=== PATIENT | male | born 1965 | race Caucasian/White ===

== ENCOUNTER → 2016-05-18 10:02 | Day surgery (SDC) | payer MEDICARE, MEDICAID ==
--- NOTE | 2016-05-18 03:42 | HP ---
HISTORY AND PHYSICAL: DATE OF ADMISSION: 05/18/16 HISTORY OF PRESENT ILLNESS: Rubens follows up for his left shoulder. He had a fall after his debridement and he is here for the results. He is still having a significant amount of pain. He is unable to lift the shoulder up. He is worried that he caused harm. It feels stiffer than it did prior to surgery, the surgery was done on January 05. PAST MEDICAL HISTORY: Recent ulcers, anemia, rashes, learning disability, DVT in his leg 1-1/2 years ago. PAST SURGICAL HISTORY: Significant for right knee arthroscopy, tonsillectomy and left shoulder arthroscopy with debridement and biceps tenotomy. MEDICATIONS: Include: 1. Warren. 2. Loratadine. 3. Omeprazole. 4. Ferrous sulfate. ALLERGIES: None. FAMILY HISTORY: Mother with diabetes and high blood pressure. Father with cancer who is at end of life. SOCIAL HISTORY: He denies smoking tobacco, but he chews up to 2 cans a day. He denies alcohol. He is disabled due to his learning disability. REVIEW OF SYSTEMS: A 14-point review of systems is reviewed with the patient, is significant for an ulcer that was last fall with anemia, history of DVT, rashes, as well as the above complaint and recent surgery in the left shoulder in December 2015. Otherwise, remainder of the review of systems is negative. PHYSICAL EXAMINATION GENERAL: He is in no acute distress. He is well developed, well nourished. He is alert and oriented x3. He has pleasant mood and normal affect. HEENT: EOMI. LUNGS: Chest is clear to auscultation bilaterally. HEART: Regular rate and rhythm. ABDOMEN: Soft. EXTREMITIES: Examination of the left shoulder demonstrates his skin is intact. Incisions are well healed. He can forward flex to about 80, abduct to about 70 , passively I can get him further but it causes a lot of pain, externally rotates to about 30 degrees, internal rotation to posterior ileum. He has 4/5 strength with supraspinatus testing, 5/5 strength with subscap including belly press and bear hug; however, it is painful. He has a popeyes deformity. He has full range of motion to his elbow, wrist and hand. He is sensate to light touch about the first dorsal webspace, index and long finger and ulnar aspect of the small finger. He has 2+ radial pulse. DIAGNOSTIC STUDIES: MRI was reviewed that demonstrates a full thickness tear of his supraspinatus tendon. ASSESSMENT AND PLAN: He fell, subsequent to that he has torn his rotator cuff. I talked to him about options. I am concerned because he does use smokeless tobacco, I think the nicotine is going to cause him a problem with regards to his healing, but he is not diabetic. I told him I want him to wean off or quit entirely because it can affect his repair. At this point, I would plan for a left shoulder arthroscopy with rotator cuff repair and debridement as indicated. We reviewed the risks and benefits of surgery, which include but are not limited to bleeding, infection, damage to nerve vessels, surrounding structures, wound nonhealing, stiffness persistent pain, need for further surgery, retear or failure of the repair, fracture, risk of DVT and risk of anesthesia. He has elected to proceed with surgery. We will see him back 10 to 14 days after surgery. I wrote him a prescription for Warren that will help alleviate his pain until surgery. [id number]/[facility] #: [id number] [facility]
[~2016-05-18 10:02] MED LIST: Buffered Lidocaine 1% SYRIN* 3 ML/SYR SYRINGE INTRADERM ONE; Dexamethasone IV* 4 MG/ML 1 ML (4 MG) ONE; DiMENhydriNATE IV* 50 MG/ML VIAL IV PUSH PRN; Famotidine IV* 10 MG/ML 2 ML (20 mg) IV ONE; Famotidine IV* 10 MG/ML 2 ML (20 mg) ONE; HYDROmorphone* 1 MG/ML 1 ML SYR IV PRN; Ketorolac INJ* 30 MG/ML 1 ML VIAL ONE; Lidocaine 2% PF* 5 ML VIAL ONE; Midazolam* 1 MG/ML 5 ML VIAL (5 MG) ONE; Ondansetron INJ* 2 MG/ML VIAL ONE; Propofol* 10 MG/ML 20 ML BTL IV PUSH ONE; Succinylcholine* 20 MG/ML 10 ML VIAL ONE; ceFAZolin 2 GM PREMIX(*) 2 GM/50 ML BAG IVPB ONE; fentaNYL* 50 MCG/ML 2 ML VIAL (100 MCG VIAL) ONE; oxyCODONE/Acetamin 5/325 MG* TAB PO PRN
[2016-05-18 16:53] VITALS: BP 142/96
--- NOTE | 2016-05-23 02:58 | OP ---
DATE OF OPERATION: 05/18/16 [facility] DATE OF : 69 SURGEON: Sanjuanita Rhodes MD COATING MACHINE OPERATOR HELPER: DAX Ba. An welder assistant was needed for the entirety of the case to help with positioning, retraction, and was utilized throughout all portions of the case. ANESTHESIOLOGIST: Dr. Ngo. ANESTHESIA: General with interscalene block. PRE-OP DIAGNOSIS: Left shoulder supraspinatus tear. POST-OP DIAGNOSIS: Left shoulder supraspinatus tear. OPERATIVE PROCEDURE: Left shoulder arthroscopy with rotator cuff repair revision and decompression. IMPLANTS USED: Two HEALICOIL and one MULTIFIX anchor. INDICATIONS: Rubens Boswell is a 50-year-old male, who underwent a previous subacromial decompression with acromioplasty for adhesive capsulitis and acute impingement. He also underwent biceps tenotomy at that time. He was doing well and he lost ground. He fell several weeks into the postoperative period and had persistent pain and difficulty raising his shoulder up. It felt different than it did prior to surgery. We obtained an MRI, which demonstrated a full thickness tear of the supraspinatus tendon, which was not present in the previous surgical window. Risks and benefits of surgery were discussed at length and included, but not limited to, bleeding, infection, damage to nerves, vessels, surrounding structures, wound nonhealing, persistent pain, need for further surgery, risks of anesthesia, risk of DVT, and risk of failure. The patient does chew tobacco and was warned that this will affect his postoperative recovery time. It was discussed at length that he should quit the tobacco. He has elected to proceed with surgery. DESCRIPTION OF PROCEDURE: The patient was greeted in the preoperative area by the attending surgeon, correct extremity was marked and the consent was confirmed. The patient then underwent interscalene nerve block by the attending anesthesiologist, which he tolerated without difficulty. The patient was then brought back to the operating suite where he was placed in the supine position on the operating table. He then underwent general anesthesia with LMA intubation, which he tolerated well. The patient was then placed in the right lower decubitus position with an axillary roll. All bony prominences were padded. He was supported with a peg board. The left arm was then draped unsterile from the traction frame with 10 pounds of traction. The left arm was then prepped and draped in the usual sterile fashion. Next, after appropriate surgical pause indicating side, site, procedure, and administration of antibiotics, the standard posterior lateral portal was made sharply with an 11 blade. The scope was introduced to the joint. The joint was examined. The joint itself had no specific changes. There was hyperemia and increased synovitis on the undersurface of the rotator cuff, but there was nothing else that visualized any changes. The scope was then repositioned in the subacromial space. There was evidence of a full thickness tear of supraspinatus particularly anteriorly based and then high-grade partial thickness tear which connected to this that was extended almost to the level of the infraspinatus tendon. Lateral portal was made in outside-in fashion. The recurrent bursa was then removed using the shaver device. The undersurface of the acromion was prepared. Again, a small revision acromioplasty which was mostly done with the shaver. Once the excess bursal tissue and inflammatory tissues were removed, the cuff was visualized. It was fully torn anteriorly. The electrocautery device was then used to help complete the tear to completely detach this. The edges were then debrided back using the shaver. The greater tuberosity was prepared in the usual fashion with electrocautery device, the shaver as well as the rasp. Once this was done, two 4.75 HEALICOIL anchors were made with separate stab incisions into the medial aspect of the greater tuberosity. These were placed with excellent purchase. The sutures were then passed in horizontal mattress configuration. These were then tagged down which helped to appropriately restore the tendon. One suture from each knot was then cut and the remaining sutures then passed through one MULTIFIX anchor for a lateral row repair. This allowed stable strong construct. The shoulder was taken through range of motion and found to be stable. All excess fluid and debris were removed. Final images were obtained. All fluid was removed from the joint. The wound was closed with 3-0 nylon. The sterile dressings were applied as well as a Cryo/Cuff. The patient was then placed in an UltraSling. He was awoken from anesthesia and transferred to PACU in stable condition. POSTOPERATIVE PLAN: He will be nonweightbearing for 6 weeks. He will be allowed to work on elbow, wrist, and hand range of motion as well as pendulums. He will be discharged on pain medications and antibiotics since this is a revision surgery still close to the initial one. DVT prophylaxis was considered , but deferred due to no previous personal or family history. I will see the patient back in 10 to 14 days. [id number]/[facility] #: [id number] MTDEarnest
== END | disposition home or self-care (01) ==
LOC: OR 10:02
PROVIDERS: ATTEND Orthopaedic Surgery
DX: M75.122 Complete rotator cuff tear or rupture of left shoulder, not specified as traumatic (principal); D64.9 Anemia, unspecified; Z87.11 Personal history of peptic ulcer disease; F17.220 Nicotine dependence, chewing tobacco, uncomplicated
CPT/HCPCS: C1713; J0330; J0690; J1100; J1885; J2250; J2405; J2704; J3010

== ENCOUNTER 2017-03-15 09:35 | Day surgery (SDC) | payer MEDICARE, MEDICAID ==
--- NOTE | 2017-03-08 07:25 | HP ---
PREOPERATIVE HISTORY AND PHYSICAL: DATE OF SURGERY: 03/15/17 ATTENDING SURGEON: Sanjuanita Rhodes MD * (DICTATED BY DAX GARCIA) PROCEDURE: Left shoulder arthroscopic rotator cuff repair. CHIEF COMPLAINT: Left shoulder. HISTORY OF PRESENT ILLNESS: Rubens is a 51-year-old male who presents to the clinic with left shoulder pain due to a rotator cuff tear. He had a prior repair performed by Dr. Rhodes on 05/18/16. He was working on the car when he noticed more pain and he re-tore his cuff. He has failed conservative measures and has therefore agreed to undergo a left shoulder arthroscopic rotator cuff repair with Dr. Rhodes on 03/15/17. PAST MEDICAL HISTORY: 1. Peptic ulcer disease. 2. Anemia. 3. Rashes. 4. Learning disability. 5. History of DVT in his leg 2 years ago. PAST SURGICAL HISTORY: Left shoulder rotator cuff repair, left shoulder debridement and biceps tenotomy, and tonsillectomy. The patient denies prior complications with the anesthesia. MEDICATIONS: 1. Augmentin 875/125 mg 1 by mouth every 12 hours for 10 days. 2. Cyclobenzaprine HCL 5 mg 1 by mouth every 8 hours as needed. 3. Percocet 5/325 mg 1 every 12 hours as needed. The patient states he is not currently taking. 4. Loratadine 10 mg 1 by mouth every day. 5. Omeprazole 20 mg 1 by mouth once a day. 6. Ferrous sulfate 325 1 by mouth daily. 7. Ibuprofen 800 mg 1 by mouth every 6 to 8 hours as needed for pain. ALLERGIES: No known drug allergies. FAMILY HISTORY: Positive for mother with diabetes and hypertension, father with cancer. SOCIAL HISTORY: The patient uses chewing tobacco. He is disabled due to his learning disability. He denies smoking cigarettes. He denies alcohol consumption. REVIEW OF SYSTEMS: A 14-point review of systems was reviewed with the patient, positive for current complaint, otherwise negative. He denies numbness, tingling, fever, chills. Denies chest pain, shortness of breath. Denies history of bleeding disorder. He does have a history of a prior DVT 2 years ago. PHYSICAL EXAMINATION GENERAL: Well-developed, well-nourished 51-year-old male in no acute distress. Alert and oriented x3. Appropriate mood and affect. VITAL SIGNS: Height 68, weight of 208. Blood pressure 130/82, respiratory rate 18, temperature 97. BMI 31.6. HEENT: Normocephalic and atraumatic. PERRLA. NECK: Supple. Throat clear. PULMONARY: Lungs clear to auscultation bilaterally. No wheezing, rhonchi or rales. CARDIO: Regular rate and rhythm. S1, S2. No murmurs, gallops, rubs. No edema. ABDOMEN: Positive bowel sounds. Soft and nontender. NEUROLOGIC: Alert and oriented x3. Cranial nerves grossly intact. Sensation intact to light touch. MUSCULOSKELETAL: Left upper extremity, skin intact. Well-healed surgical incision. Forward flexion 130, abduction 120, external rotation of 50, internal rotation to the lumbar spine, pain and weakness on rotator cuff testing , positive Elsi's, +4/5 strength on supraspinatus testing, +2 radial pulse. Sensation intact to light touch distally. STUDIES: MR arthrogram reveals a re-tear of the rotator cuff, the posterior aspect of the supraspinatus and part of the infraspinatus tendon. IMPRESSION: Left shoulder rotator cuff tear. PLAN: The patient is scheduled to undergo a left shoulder arthroscopic rotator cuff repair with Dr. Rhodes on 03/15/17. He will return to the office 10 to 14 days for postoperative followup and suture removal. Percocet was sent to the patient's pharmacy for postop pain management and Keflex was sent for antibiotic prophylaxis, 10 days of Lovenox was also sent to use postoperatively since the patient has history of deep venous thrombosis. DAX GARCIA [id number]/[facility] #: [id number] KASANDRA
[~2017-03-15 09:35] MED LIST changes: +Buffered Lidocaine 0.9% SYRIN* 5 ML/SYR SYRINGE INTRADERM ONE; -Buffered Lidocaine 1% SYRIN* 3 ML/SYR SYRINGE INTRADERM ONE; -Dexamethasone IV* 4 MG/ML 1 ML (4 MG) ONE; -DiMENhydriNATE IV* 50 MG/ML VIAL IV PUSH PRN; -Famotidine IV* 10 MG/ML 2 ML (20 mg) IV ONE; -Famotidine IV* 10 MG/ML 2 ML (20 mg) ONE; -HYDROmorphone* 1 MG/ML 1 ML SYR IV PRN; -Ketorolac INJ* 30 MG/ML 1 ML VIAL ONE; -Lidocaine 2% PF* 5 ML VIAL ONE; -Midazolam* 1 MG/ML 5 ML VIAL (5 MG) ONE; -Ondansetron INJ* 2 MG/ML VIAL ONE; -Propofol* 10 MG/ML 20 ML BTL IV PUSH ONE; -Succinylcholine* 20 MG/ML 10 ML VIAL ONE; -ceFAZolin 2 GM PREMIX(*) 2 GM/50 ML BAG IVPB ONE; -fentaNYL* 50 MCG/ML 2 ML VIAL (100 MCG VIAL) ONE; -oxyCODONE/Acetamin 5/325 MG* TAB PO PRN
[2017-03-15] MEDS ORDERED: ceFAZolin 2 GM PREMIX (*) 2 GM/50 ML BAG IVPB ONE (09:45)
[2017-03-15] MEDS ORDERED: Buffered Lidocaine 0.9% SYRIN* 5 ML/SYR SYRINGE ONE (09:45)
[2017-03-15] MEDS ORDERED: Midazolam* 1 MG/ML 2 ML VIAL (2 MG) ONE (11:00)
[2017-03-15] MEDS ORDERED: fentaNYL* 50 MCG/ML 2 ML VIAL (100 MCG VIAL) ONE ×2 (11:00→13:54)
[2017-03-15] MEDS ORDERED: Propofol* 10 MG/ML 20 ML BTL IV PUSH ONE (11:00)
[2017-03-15] MEDS ORDERED: Bupivacaine 0.25% SDV* 30 ML ONE (11:00)
[2017-03-15] MEDS ORDERED: Atracurium* 10 MG/ML 10 ML VIAL ONE (12:04)
[2017-03-15] MEDS ORDERED: Succinylcholine* 20 MG/ML 10 ML VIAL ONE (12:04)
[2017-03-15] MEDS ORDERED: Dexamethasone IV* 4 MG/ML 1 ML (4 MG) ONE (12:21)
[2017-03-15] MEDS ORDERED: Ondansetron INJ* 2 MG/ML VIAL IV PRN (12:44)
[2017-03-15] MEDS ORDERED: DiMENhydriNATE IV* 50 MG/ML VIAL IV PUSH PRN (12:44)
[2017-03-15] MEDS ORDERED: Naloxone* 0.4 MG/ML 1 ML VIAL IV PRN (12:44)
[2017-03-15] MEDS ORDERED: HYDROcodone/ACETAMIN 5-325 MG* 1 TAB PO PRN (12:44)
[2017-03-15] MEDS ORDERED: Ondansetron INJ* 2 MG/ML VIAL ONE (12:51)
[2017-03-15] MEDS ORDERED: oxyCODONE/Acetamin 5/325 MG* TAB ONE ×2 (13:54→14:05)
[2017-03-15] MEDS: fentaNYL* 50 MCG/ML 2 ML VIAL (100 MCG VIAL) IV PRN ×3 (13:55→14:20)
[2017-03-15] MEDS: oxyCODONE/Acetamin 5/325 MG* TAB PO PRN ×2 (13:57→14:09)
[2017-03-15 14:18] VITALS: BP 127/94
--- NOTE | 2017-03-16 00:34 | OP ---
CC: PCP, Breanna Wills MD * DATE OF OPERATION: 03/15/17 - [facility] DATE OF : 69 ATTENDING SURGEON: Sanjuanita Rhodes MD ASSISTANTS: DAX Echevarria, and LUZ MARIA ChristianIII. ANESTHESIOLOGIST: Dr. Posey. ANESTHESIA: General interscalene block. PRE-OP DIAGNOSIS: Left retear of the rotator cuff. POST-OP DIAGNOSIS: Left retear of the rotator cuff. OPERATIVE PROCEDURE: Left shoulder revision rotator cuff repair. COMPLICATIONS: None. ESTIMATED BLOOD LOSS: Minimal. IMPLANTS: One 4.75 Healicoil and 1 MultiFix. INDICATIONS: Rubens Boswell is a 51-year-old gentleman who had a previous rotator cuff repair last year, who did not followup after his 3 months postop visit. He was trying to work under his car and felt a pop and had a lot of pain. He had difficulty lifting his shoulder up. He denies numbness or tingling. We worked him up and he was diagnosed with a rotator cuff tear posterior to the previous repair, but involving part of the original repair. Risks and benefits of the surgery were discussed at length and included, but not limited to bleeding, infection, damage to nerves, vessels, surrounding structures, wound nonhealing, persistent pain, need for further surgery, scarring, stiffness, incomplete relief of symptoms, and risk of anesthesia. He is elected to proceed. DESCRIPTION OF PROCEDURE: The patient was greeted in the preoperative area by the attending surgeon. The correct extremity was marked and consent was confirmed. He then underwent interscalene nerve block by the anesthesiologist in the PACU area. He was then brought back to the operating suite where he was placed in the supine position on the operating table. He then underwent general anesthesia endotracheal intubation after which he was placed in the right lateral decubitus position with all bony prominences padded. He was secured with a peg board. The left arm was draped unsterile with 10 pounds of traction. The left shoulder was prepped and draped in the usual sterile fashion beginning with chlorhexidine soap scrub and alcohol wipe and a final prep with ChloraPrep. After appropriate surgical pause indicating side, site, procedure, and administration of antibiotics, the posterolateral port was made sharply with 11 blade. Scope was introduced into the joint, the joint was examined. The scope was brought into the intraarticular joint. The glenohumeral joint had grade 0 to 1 changes. The anterior and posterior labrum were intact. Superior labrum had evidence of a previous biceps tenotomy. The subscapularis is intact. The inner surface of the supraspinatus was intact, but posteriorly there was high- grade partial tearing. There was no debridement that needed to be done in the glenohumeral joint; therefore, the scope was positioned in the subacromial space. The anterior and lateral portals were made. Once the scope was in the subacromial space, there was abundant scar and bursa present that was debrided back. The undersurface of the acromion was skeletonized. The previous repair was identified and one of the sutures had loosened, but the remainder of the repair was intact. The probe was used to find posterior to the repair, there was a full thickness defect. The electrocautery and the shaver were used to debride back the tear. The greater tuberosity was prepared in the usual fashion with a rasp and arthroscopic bur. Once this was done, gently decorticate the greater tuberosity. Through a separate stab incision, a 4.75 Healicoil was placed with excellent purchase. This was then passed through the tendon in a horizontal mattress configuration and they were then tied down using arthroscopic knot tying and passed through MultiFix anchor to the lateral row repair. This helped to restore the rotator cuff shoulder to take the range of motion and the cuff was completely compressed to the greater tuberosity. Final images were obtained. The subacromial space and joint copiously irrigated. The portals were copiously irrigated with sterile saline. The portals were closed with 3-0 nylon in an interrupted fashion. Sterile dressings were applied. A Cryo/Cuff and his previous UltraSling was applied. He was awoken from anesthesia and transferred to the PACU in stable condition. POSTOPERATIVE PLAN: He will be nonweightbearing. He will be discharged on pain medications and antibiotics. DVT prophylaxis was considered and he has a history of DVT; therefore, we started on Lovenox, although he did take his two doses already. I will see the patient back in 10 to 14 days. He is nonweightbearing. Range of motion of elbow, hand, and wrist only. [id number]/[facility] #: [id number] [facility]
== END 2017-03-15 15:03 | disposition home or self-care (01) ==
LOC: OR 09:35
PROVIDERS: ATTEND Orthopaedic Surgery
DX: M75.122 Complete rotator cuff tear or rupture of left shoulder, not specified as traumatic (principal); M75.02 Adhesive capsulitis of left shoulder; M25.512 Pain in left shoulder; D64.9 Anemia, unspecified; R21 Rash and other nonspecific skin eruption; K27.9 Peptic ulcer, site unspecified, unspecified as acute or chronic, without hemorrhage or perforation; F81.9 Developmental disorder of scholastic skills, unspecified; M54.30 Sciatica, unspecified side; F17.220 Nicotine dependence, chewing tobacco, uncomplicated; Z86.718 Personal history of other venous thrombosis and embolism
CPT/HCPCS: A9270-GY; C1713; J0330; J0690; J1100; J2250; J2405; J2704; J3010